=== PATIENT | female | born 1990 | race African-American/Black ===

== ENCOUNTER 2024-07-21 11:57 | Emergency (ER) | payer OTHER ==
[~2024-07-21] VITALS: Ht 160 cm; Wt 72.6 kg
[2024-07-21] MEDS ORDERED: IBUP-1955 PO (12:12)
[2024-07-21 13:23] VITALS: BP 129/70; O2SAT 100
[2024-07-21] MEDS ORDERED: KETOROLAC TROMETHAMINE 15 MG INJ ONE (13:34)
[2024-07-21] MEDS: KETOROLAC TROMETHAMINE 15 MG INJ IM ONE (13:50)
== END 2024-07-21 13:58 | disposition home or self-care (01) ==
LOC: ER 11:57
DX: S93.691A Other sprain of right foot, initial encounter (principal); W07.XXXA Fall from chair, initial encounter; Y93.89 Activity, other specified; Y92.098 Other place in other non-institutional residence as the place of occurrence of the external cause; Y99.8 Other external cause status
CPT/HCPCS: 99284; 73610; 73630; 96372; J1885; A4606; A4663

== ENCOUNTER 2024-10-30 16:04 | Emergency (ER) | payer OTHER ==
[~2024-10-30] VITALS: Ht 160 cm; Wt 72.6 kg
[~2024-10-30 16:04] MED LIST: IBUP-1955 PO
[2024-10-30 16:06] VITALS: O2SAT 99
[2024-10-30] MEDS ORDERED: BACITRACIN ZINC OINT 15 GM TUBE ONE (16:54)
[2024-10-30] MEDS: BACITRACIN ZINC OINT 15 GM TUBE TOP ONE (17:05)
[2024-10-30 17:16] VITALS: BP 127/70; TEMP 97.9
== END 2024-10-30 17:00 | disposition home or self-care (01) ==
LOC: ER 16:04
DX: S91.312D Laceration without foreign body, left foot, subsequent encounter (principal); Z48.02 Encounter for removal of sutures; X58.XXXD Exposure to other specified factors, subsequent encounter
CPT/HCPCS: A4606; A4663